=== PATIENT | female | born 1995 | race Caucasian/White ===

== ENCOUNTER 2020-11-15 11:46 | Outpatient (CLI) | payer OTHER ==
--- NOTE | 2020-11-18 11:44 | Ultrasound Report ---
LIMITED ULTRASOUND OF RIGHT BREAST: 11/15/2020 CLINICAL: Focal right breast pain. No prior exams were available for comparison. Ultrasound of the right breast 9 o'clock region was performed. No abnormality which corresponds with the area of pain is seen. IMPRESSION: NEGATIVE There is no abnormality seen in the right breast to correspond with the pain at 9 o'clock, however, c linical correlation and clinical followup are recommended. This exam was interpreted at Station ID: [id number]. Electronically Signed By: Nathan Nelson acr/:11/15/2020 13:35:33 Ultrasound BI-RADS: 1 Negative BI-RADS CATEGORY: (1) - 1 Unspecified - other [id number] Immediate follow-up LATERALITY: (B)
== END 2020-11-15 11:47 | disposition home or self-care (01) ==
LOC: DI 11:46
PROVIDERS: ATTEND Nurse Practitioner Family
DX: N64.4 Mastodynia (principal)

== ENCOUNTER 2021-07-14 08:00 | Outpatient (CLI) | payer OTHER | END 2021-07-14 23:59 | disposition home or self-care (01) | LOC: LAB.N 08:00 | PROVIDERS: ATTEND Physician Assistant Medical | DX: R39.9 Unspecified symptoms and signs involving the genitourinary system (principal) | CPT/HCPCS: 87077; 87086 ==

== ENCOUNTER 2022-07-29 08:00 | Outpatient (CLI) | payer OTHER ==
--- NOTE | 2022-07-29 10:06 | XRAY Report ---
PROCEDURE: Abdomen 1 View X-Ray INDICATIONS: ACUTE ABDOMINAL PX TECHNIQUE: One view of the abdomen acquired. COMPARISON: None. FINDINGS: Surgical changes and devices: None. Bowel: Nonspecific bowel gas pattern with a paucity of gas in the central abdomen. Mild stool is seen in the left colon. Soft tissues: No suspicious abdominal calcifications. Visualized solid organ contours appear normal in size. Bones: No suspicious bony lesions. IMPRESSION: Nonspecific nonobstructive bowel gas pattern. No pneumoperitoneum. Reviewed by: Dale Pagan MD on 07/29/2022 10:05 AM PDT Approved by: Dale Pagan MD on 07/29/2022 10:05 AM PDT Station ID: [id number]
== END 2022-07-29 23:59 | disposition home or self-care (01) ==
LOC: DI.N 08:00
PROVIDERS: ATTEND Registered Nurse
DX: R10.9 Unspecified abdominal pain (principal); K59.00 Constipation, unspecified

== ENCOUNTER 2023-01-08 07:32 | Outpatient (CLI) | payer OTHER ==
[2023-01-08 11:42] LABS: BASOPHILS % (AUTO) 0.6 %; EOSINOPHILS # (AUTO) 0.1 10^3/uL (0.0-0.7); EOSINOPHILS % (AUTO) 1.4 %; HCT - HEMATOCRIT 41.4 % (37.0-47.0); HGB - HEMOGLOBIN 14.1 g/dL (12.0-16.0); LYMPHOCYTES # (AUTO) 1.9 10^3/uL (1.5-3.5); LYMPHOCYTES % (AUTO) 37.4 %; MEAN CORPUSCULAR HEMOGLOBIN 31.2 pg (27.0-31.0); MEAN CORPUSCULAR HGB CONC 34.1 g/dL (32.0-36.0); MEAN CORPUSCULAR VOLUME 91.6 fL (81.0-99.0); MEAN PLATELET VOLUME 9.2 fL (7.9-10.8); MONOCYTES # (AUTO) 0.5 10^3/uL (0.0-1.0); MONOCYTES % (AUTO) 9.2 %; NEUTROPHILS # (AUTO) 2.6 10^3/uL (1.5-6.6); NEUTROPHILS % (AUTO) 51.4 %; PLT - PLATELET COUNT 279 10^3/uL (130-450); RED BLOOD COUNT 4.52 10^6/uL (4.20-5.40); RED CELL DISTRIBUTION WIDTH 12.8 % (12.0-15.0); WHITE BLOOD COUNT 5.1 x10^3/uL (4.8-10.8)
[2023-01-08 11:43] LABS: ALBUMIN 4.1 g/dL (3.2-5.5); ALBUMIN/GLOBULIN RATIO 1.3 (1.0-2.2); BILIRUBIN,TOTAL 0.6 mg/dL (0.2-1.0); CALCIUM 9.5 mg/dL (8.5-10.3); CREATININE 0.6 mg/dL (0.4-1.0); POTASSIUM 4.3 mmol/L (3.5-5.0); TOTAL PROTEIN 7.3 g/dL (6.7-8.2)
[2023-01-08 12:12] LABS: THYROID STIMULATING HORMONE 3.26 uIU/mL (0.34-5.60)
== END 2023-01-08 07:33 | disposition home or self-care (01) ==
LOC: LAB.N 07:32
PROVIDERS: ATTEND Physician Assistant
DX: Z13.9 Encounter for screening, unspecified (principal)
CPT/HCPCS: 36415; 80053; 84443; 85025